=== PATIENT | female | born 1965 | race Caucasian/White ===

== ENCOUNTER 2023-05-08 14:38 | Emergency (ER) | payer OTHER, SELFPAY ==
[2023-05-08 15:02] VITALS: BP 141/69; PULSE 63; RESP 16; TEMP 36.7; O2SAT 98
--- NOTE | 2023-05-08 15:29 | ED.NECK ---
HPI - Neck Pain/Injury General Chief Complaint: Neck Pain/Injury Stated Complaint: neck stiffness Time Seen by Provider: 05/08/23 15:29 Source: patient Mode of arrival: ambulatory Limitations: no limitations History of Present Illness HPI Narrative: 57 y/o female presented for c/o right sided neck pain and stiffness x1 month. Denies known injury. Over the past week reports right ear pressure and 'heaviness' and states it feels like someone is touching the outer ear. Endorses chronic tinnitus. Taking Aleve. Denies headaches, photophobia, dizziness, fatigue, n/v/d/f/c. Related Data Home Medications Medication Instructions Recorded Confirmed spironolactone 100 mg tablet 100 mg PO BID 05/08/23 05/08/23 Allergies Allergy/AdvReac Type Severity Reaction Status Date / Time doxycycline AdvReac Mild Hives Verified 05/08/23 15:27 Review of Systems Review of Systems: CONSTITUTIONAL: Denies body aches, fever, chills, or sweats. EYES: Denies visual changes, redness, or discharge. CARDIOVASCULAR: Denies chest pain, palpitations, or edema. RESPIRATORY: Denies cough or dyspnea. GASTROINTESTINAL: Denies abdominal pain, nausea, vomiting, or diarrhea. SKIN: Denies rash, itching, or wounds. MUSCULOSKELETAL: Reports neck pain denies back pain, joint pain, or myalgia. NEUROLOGIC: Denies headache, numbness, tingling, or weakness. All systems reviewed & are unremarkable except as noted in HPI and below PMFSH Past Medical History Medical History (Updated 05/08/23 @ 16:39 by Nery Darby, BARI) No pertinent past medical history Comments At time of signature, I have reviewed and agree with nursing past medical, surgical, social and family history unless otherwise noted. Please see nursing chart for further information. There is no relevant family history pertinent to the presenting complaint Exam Narrative: GENERAL: Well-appearing HEAD: Normocephalic, atraumatic. EYES: EOMI. No redness or drainage. Conjunctivae normal. PERRLA. ENT: Mucous membranes pink and moist. No rhinorrhea. Left TM normal, Right TM with purulent effusion; no drainage, no mastoid/tragal tenderness. Throat normal. Uvula midline. NECK: Slightly decreased AROM, pain reported when turning head to right and flexion; Supple. No VPT or paraspinal tenderness. CHEST: No respiratory distress. Clear to auscultation. HEART: Regular rate and rhythm. No murmur appreciated. Normal peripheral pulses. SKIN: Warm, dry, no rash. Capillary refill normal. Normal skin turgor. NEURO: No focal deficits. Sensation normal to face. Alert and oriented x3. Gait steady. PSYCH: Talkative Course Course Emergency Course: Patient is aware of diagnosis, understands and agrees to treatment plan. Anticipatory guidance given. Patient agrees to follow-up as directed and is aware of reasons to seek care at the emergency department. Portions of this record may have been created with voice recognition software Level of Care: Express Care Visit Vital Signs Vital signs: Vital Signs Temperature 98.1 F 05/08/23 15:02 Pulse Rate 63 05/08/23 15:02 Respiratory Rate 16 05/08/23 15:02 Blood Pressure 141/69 H 05/08/23 15:02 Pulse Oximetry 98 05/08/23 15:02 Oxygen Delivery Room Air 05/08/23 15:02 Temperature 98.1 F 05/08/23 15:02 Pulse Rate 63 05/08/23 15:02 Respiratory Rate 16 05/08/23 15:02 Blood Pressure 141/69 H 05/08/23 15:02 Pulse Oximetry 98 05/08/23 15:02 Oxygen Delivery Room Air 05/08/23 15:02 MDM - Neck Pain/Injury MDM Narrative Medical decision making narrative: Discussed physical exam findings; Right AOM and neck strain. Reviewed Rx's. Provided with pcp list Advised supportive measures and signs/symptoms to go to the ER at length. Pt is appropriate for outpt treatment and f/u. Differential Diagnosis Differential diagnosis: Likely disc disorder of cervical region, whiplash injury to neck, closed subluxation of cervical sp
== END 2023-05-08 15:50 | disposition home or self-care (01) ==
PROVIDERS: Emergency Provider Nurse Practitioner Family
DX: M54.2 Cervicalgia (principal); H66.91 Otitis media, unspecified, right ear
CPT/HCPCS: 99213; G0463

== ENCOUNTER 2024-03-17 15:33 | Emergency (ER) | payer OTHER, SELFPAY ==
--- NOTE | 2024-03-17 15:46 | ED_ITS ---
HPI - Skin/Abscess/Foreign Bdy General Chief complaint: Skin/Abscess/Foreign Body Stated complaint: Rash on Body Time Seen by Provider: 03/17/24 15:35 Source: patient Mode of arrival: ambulatory Limitations: no limitations History of Present Illness HPI narrative: Patient is a 58-year-old female who presents with red rash to face and neck. Patient states it is warm to touch and makes her face feels swollen. Patient started new benzyl peroxide cream from manager video on evening. Patient states symptoms started last night. Dermatology office is closed today but states she will call them tomorrow. Denies any lip or tongue swelling. Denies any shortness of breath. Did take a Benadryl last night Related Data Home Medications Medication Instructions Recorded Confirmed spironolactone 100 mg tablet 100 mg PO BID 05/08/23 03/17/24 clindamycin phosphate 1 % lotion 1 applic topical QID 03/17/24 03/17/24 tretinoin 0.05 % topical cream 1 applic topical BID 03/17/24 03/17/24 Allergies Allergy/AdvReac Type Severity Reaction Status Date / Time doxycycline AdvReac Mild Hives Verified 03/17/24 15:43 Review of Systems Review of Systems: All systems reviewed & are unremarkable except as noted in HPI and below Constitutional: Constitutional: Denies body ache(s), Denies chills, Denies fatigue, Denies fever(s), Denies headache(s), Denies malaise and Denies weakness Eyes: Eyes: Denies blurry vision, Denies irritation and Denies loss of vision ENT: Denies otalgia, Denies headache(s), Denies nasal discharge, Denies sinus pain and Denies sore throat Cardiovascular: Cardiovascular: Denies chest pain, Denies irregular heart rhy thm and Denies dyspnea Respiratory: Respiratory: Denies dyspnea Gastrointestinal: Gastrointestinal: Denies abdominal pain, Denies melena, Denies hematochezia, Denies diarrhea, Denies nausea and Denies vomiting Musculoskeletal: Musculoskeletal: Denies back pain, Denies myalgias and Denies arthralgias Integumentary/Breasts: Skin/Breast: Denies pruritus and Reports rash Neurologic: Denies headache(s), Denies loss of vision and Denies weakness Psychiatric: Psychiatric: Reports no additional psychiatric complaints Endocrine: Endocrine: Denies fatigue PMFSH Past Medical History Medical History No pertinent past medical history Comments At time of signature, agree with nursing past medical, surgical, social and family history. There is no relevant family history pertinent to the presenting complaint. Exam 2 Const: General: cooperative, healthy appearing, comfortable, no acute distress and well nourished Nutritional Appearance: well nourished Orientation/consciousness: patient oriented x3 Limitations: no limitations HENMT: Head: normal to inspection, normocephalic and atraumatic Ears: hearing grossly normal bilaterally and external ears normal Face/Nose/Sinus: Normal external nose present, normal facial exam and face symmetric Face and sinus: normal facial exam and face symmetric Mouth: Yes lip normal Eyes: General: appearance normal, both eyes and all related structures Alignment and Position: alignment normal and position normal Periorbital: periorbital findings normal Eyelids: eyelids normal Pupils: Equal, round and reactive pupils present EOM: EOMs intact bilaterally Neck: Neck: normal visual inspection, full ROM and supple Chest: Chest palpation & inspection: normal inspection of the chest Resp: Effort & Inspection: normal respiratory effort and able to speak in complete sentences Auscultation: clear to auscultation bilaterally Cardio: Rate: regular rate Rhythm: regular rhythm Heart sounds: S1 normal heart sound present and S2 normal heart sound present GI: Inspection: normal to inspection Skin: General skin exam: normal color and no rashes or lesions noted Rashes: rashes noted urticaria bilateral face size (over forehead, cheeks and neck), borders sharp and irregular, color red and surface erythematous and warm; nontender Neuro: General: patient oriented x3 and moves all extremities Cranial nerves: Yes Equal, round and reactive pupils present Speech: normal speech Gait exam (Neuro): Normal gait present Extrem: General: normal to inspection, full ROM and no edema Psych: Appearance: grossly normal and well kempt Mental Status: mental status grossly normal Speech and movement: Normal speech and movement present Affect: normal affect Attitude: cooperative Thought process: Normal thought process present Course Course Emergency Course: Patient is aware of diagnosis, understands and agrees to treatment plan. Anticipatory guidance given. Patient agrees to follow-up as directed and is aware of reasons to seek care at the emergency department. Portions of this record may have been created with voice recognition software Level of Care: Express Care Visit Vital Signs Vital signs: Reviewed MDM - Skin/Abscess/Foreign Bdy MDM Narrative Medical decision making narrative: Discussed following up with dermatology. Advised patient to limit makeup use while reaction is still new. Discuss using Aquaphor, prednisone and famotidine. Exam findings show no acute concerns or changes; patient is non-toxic appearing and is in no distress.? Patient is appropriate for outpatient treatment and follow-up. Discharge instructions reviewed with patient, as well as provided in writing per nursing staff. The instructions also include specific and strict return/GO TO THE ER as well as f/u information. All questions have been answered, and the patient deny any further questions with discharge and discharge plan. Differential Diagnosis Differential diagnosis: Likely abscess of skin or subcutaneous tissue, urticaria, allergic reaction to drug, cellulitis and contact dermatitis Medical Records Attestation: I reviewed the patient's medical records. Discharge Plan Discharge Clinical Impression: Contact dermatitis Qualifiers: Contact dermatitis type: allergic Contact dermatitis trigger: cosmetics Qualified Code(s): L23.2 - Allergic contact dermatitis due to cosmetics Patient Disposition: Home, Self-Care Condition: Stable Instructions: Contact Dermatitis (ED) Additional Instructions: Take steroid in the morning with food. Take famotidine daily. Take Claritin, Zyrtec or Amee in the morning along with Benadryl at night. Wash the skin thoroughly with soap and cool water as soon as possible. Applying cool wet compresses and Aquaphor throughout the day for moisture. Try to avoid make up to decrease the chances of worsening reaction. IF symptoms get worse to follow up with your primary care provider or seek ER visit if you developing difficulty breathing, weakness, dizziness Prescriptions: New prednisone 10 mg tablet See Rx Instructions .ROUTE .COMPLEX Qty: 18 0RF Rx Instructions: 30 mg daily for 3 days, 20 mg daily for 3 days, 10 mg daily for 3 days famotidine 20 mg tablet 20 mg PO DAILY 9 Days Qty: 9 0RF No Action tretinoin 0.05 % cream 1 applic TOPICAL BID clindamycin phosphate 1 % lotion 1 applic TOPICAL QID spironolactone 100 mg tablet 100 mg PO BID Follow-up/Referrals: Franck Keys MD [Primary Care Provider] - 3 Days Stand Alone Forms: Work/School Release IP Time of Disposition: 16:28
[2024-03-17 15:47] VITALS: BP 131/77; PULSE 77; RESP 16; TEMP 37.2; O2SAT 99
== END 2024-03-17 16:29 | disposition home or self-care (01) ==
PROVIDERS: Emergency Provider Nurse Practitioner Family; PCP Emergency Medicine
DX: L23.2 Allergic contact dermatitis due to cosmetics (principal)
CPT/HCPCS: 99213; G0463

== ENCOUNTER 2024-11-10 12:51 | Outpatient (CLI) | payer OTHER, SELFPAY ==
--- NOTE | ~2024-11-10 | CT_ITS ---
EXAMINATION: CT sinus wo con DATE: 11/10/2024 13:14 INDICATION: Acute sinusitis TECHNIQUE: Computed tomography (CT) of the paranasal sinuses was performed without intravenous contra st. The dose-length product was 264.97 mGy-cm. Automated exposure control and iterative reconstructio n technique were employed. COMPARISON: None FINDINGS: No significant mucosal thickening. Paranasal sinuses are pneumatized without significant mu coperiosteal reaction or air-fluid level. No mucosal thickening. Mastoids are pneumatized. Mild leftw hosea nasal septal deviation. Ostiomeatal units are patent. IMPRESSION: 1. No significant sinus disease. Reviewed, dictated and finalized at location A.
== END 2024-11-10 12:52 | disposition home or self-care (01) ==
PROVIDERS: PCP Emergency Medicine; Visit Provider Emergency Medicine
DX: J01.90 Acute sinusitis, unspecified (principal)
CPT/HCPCS: 70486